=== PATIENT | female | born 1990 | race Two or more races ===

== ENCOUNTER 2025-04-14 11:47 | Emergency (ER) | payer SELFPAY ==
[2025-04-14] MEDS ORDERED: Sodium Chloride 0.9% 10 ML Syringe FLUSH PRN (12:43)
[2025-04-14] MEDS ORDERED: Sodium Chloride 0.9% 2.5 ML Syringe FLUSH PRN (12:43)
[2025-04-14 12:55] LABS: BASOPHILS ABSOLUTE AUTO 0.03 K/uL (0.00-0.20); BASOPHILS PERCENT AUTO 0.5 % (0.0-1.0); EOSINOPHILS ABSOLUTE AUTO 0.05 K/uL (0.00-0.45); EOSINOPHILS PERCENT AUTO 0.9 % (0.0-6.0); IMMATURE GRAN ABSOLUTE AUTO 0.01 K/uL (0.00-0.05); IMMATURE GRAN PERCENT AUTO 0.2 % (0.0-0.4); LYMPHOCYTES ABSOLUTE AUTO 1.79 K/uL (1.00-4.80); LYMPHOCYTES PERCENT AUTO 31.6 % (24.0-44.0); MEAN PLATELET VOLUME 10.2 fL (9.4-12.3); MONOCYTES ABSOLUTE AUTO 0.44 K/uL (0.00-0.80); MONOCYTES PERCENT AUTO 7.8 % (0.0-8.0); NEUTROPHILS ABSOLUTE AUTO 3.34 K/uL (1.80-7.70); NEUTROPHILS PERCENT AUTO 59.0 % (41.0-71.0); NRBC ABSOLUTE 0.00 K/uL (0.00-0.02); NRBC PERCENT 0.0 /100WBC (0.0-0.2); PLATELET COUNT,PLT 215 K/uL (150-400); RED BLOOD CELL COUNT 4.37 M/uL (4.10-5.30); WHITE BLOOD CELL COUNT,WBC 5.66 K/uL (3.9-11.3)
[2025-04-14 13:11] LABS: INR 1.02 (0.86-1.11); PTT,PARTIAL THROMBOPLSTIN TIME 28.1 SEC (23.9-30.7)
[2025-04-14 13:50] LABS: A/G RATIO 1.1 (0.9-1.6); ALANINE AMINOTRANSFERASE,ALT 31.0 IU/L (14-63); ASPARTATE AMNIOTRANSFERASE,AST 20.0 IU/L (15-37); BILIRUBIN TOTAL 0.5 mg/dL (0.2-1.0); BLOOD UREA NITROGEN,BUN 7.0 mg/dL (7.0-18.0); CARBON DIOXIDE,CO2 25.4 mmol/L (21.0-32.0); CHLORIDE,CL 103.0 mmol/L (98-107); CREATININE 0.6 mg/dL (0.6-1.0); EST CRCL DRUG DOSING (CG) 93.11 mL/min; GLUCOSE RANDOM 89.0 mg/dL (74-106); POTASSIUM,K 3.5 mmol/L (3.5-5.1); PROTEIN TOTAL,TP 7.1 g/dL (6.4-8.2); SODIUM,NA 137.0 mmol/L (136-145)
[2025-04-14 13:52] LABS: ESTIMATED GFR 119.0 mL/min (>60); HCG QUANTITATIVE 12817.0 mIU/mL
== END 2025-04-14 15:56 | disposition home or self-care (01) ==
LOC: MW.ED 11:47
DX: O36.4XX1 Maternal care for intrauterine death, fetus 1 (principal); O20.0 Threatened abortion; Z79.899 Other long term (current) drug therapy
CPT/HCPCS: 36415; 76817; 76817-26; 80053; 83735; 84702; 85025; 85610; 85730; 86900; 86901; 99283; 99284